=== PATIENT | male | born 1995 | race Caucasian/White ===

== ENCOUNTER 2017-04-29 12:15 | Emergency (ER) | payer BC ==
--- NOTE | 2017-04-29 12:28 | ED.PDOC ---
History of Present Illness - General Chief Complaint: Skin/Abrasion/Tear Stated Complaint: Skin irritation Time Seen by Provider: 04/29/17 12:22 Source: patient Exam Limitations: no limitations - History of Present Illness Initial Comments: Bud Brewer 21 y/o male stated that he squeezed out apimple like lesion on top of his nose last night after he was seen at er prescibed bactrim and mupirocin and this morning nose more red and swelled up. Timing/Duration: getting worse, other - 2 days ago Severity: moderate Location: face Improving Factors: nothing Worsening Factors: nothing Associated Symptoms: denies symptoms Allergies/Adverse Reactions: Allergies NO KNOWN ALLERGY Allergy (Verified 04/29/17 12:35) Home Medications: Ambulatory Orders Clindamycin HCl 300 mg PO BID #30 cap 04/29/17 Review of Systems - Review of Systems Constitutional: States: no symptoms reported EENTM: States: no symptoms reported Respiratory: States: no symptoms reported Cardiology: States: no symptoms reported Gastrointestinal/Abdominal: States: no symptoms reported Genitourinary: States: no symptoms reported Musculoskeletal: States: no symptoms reported Skin: States: see HPI Neurological: States: no symptoms reported Endocrine: States: no symptoms reported Hematologic/Lymphatic: States: no symptoms reported Physical Exam - Physical Exam General Appearance: Alert, No apparent distress Eyes, Ears, Nose, Throat Exam: PERRL/EOMI, normal ENT inspection, TMs normal Neck: non-tender, full range of motion, supple Cardiovascular/Chest: normal peripheral pulses, regular rate, rhythm, no murmur Respiratory: chest non-tender, lungs clear, normal breath sounds Gastrointestinal/Abdominal: normal bowel sounds, non tender, soft, no organomegaly Back Exam: normal inspection Extremity: normal range of motion, non-tender Neurologic: no motor/sensory deficits, alert, normal mood/affect, oriented x 3, abnormal gait Skin Exam: normal color Skin Problem Location: other - nose Skin Character: erythema, swelling, tenderness Lymphatic: no adenopathy Progress - Progress Progress: 04/29/17 13:15 04/29/17 12:49 Clindamycin IV 900Mg [Cleocin IV 900mg] 900 mg Premix Bag 1 bag IVPB ONCE Laboratory Results WBC 9.9 K/mm3 (4.8-10.8) 04/29/17 12:41 RBC 5.33 M/mm3 (4.70-6.10) 04/29/17 12:41 Hgb 15.2 gm/dL (14.0-18.0) 04/29/17 12:41 Hct 45.9 % (42.0-52.0) 04/29/17 12:41 MCV 86.2 fl (80.0-94.0) 04/29/17 12:41 MCH 28.5 pg (27.0-31.0) 04/29/17 12:41 MCHC 33.1 g/dL (33.0-37.0) 04/29/17 12:41 RDW 13.3 % (11.5-14.5) 04/29/17 12:41 Plt Count 221 K/mm3 (130-400) 04/29/17 12:41 MPV 8.8 fl (7.40-10.4) 04/29/17 12:41 Absolute Neuts (auto) 7.70 K/uL (1.8-6.8) H 04/29/17 12:41 Absolute Lymphs (auto) 1.20 K/uL (1.0-3.4) 04/29/17 12:41 Absolute Monos (auto) 0.80 K/uL (0.2-0.8) 04/29/17 12:41 Absolute Eos (auto) 0.20 K/uL (0.0-0.4) 04/29/17 12:41 Absolute Basos (auto) 0.10 K/uL (0.0-0.1) 04/29/17 12:41 Neutrophils % 77.5 % (42.0-78.0) 04/29/17 12:41 Lymphocytes % 12.4 % (20.0-50.0) L 04/29/17 12:41 Monocytes % 7.8 % (2.0-9.0) 04/29/17 12:41 Eosinophils % 1.8 % (1.0-5.0) 04/29/17 12:41 Basophils % 0.5 % (0.0-2.0) 04/29/17 12:41 Departure - Departure Clinical Impression: Cellulitis of nose, external Time of Disposition: 13:16 Disposition: Discharge to Home or Self Care Condition: Good Departure Forms: ED Discharge - Pt. Copy, Patient Portal Self Enrollment Instructions: DI for Cellulitis -- Adult, Cellulitis Prescriptions: Clindamycin HCl 300 mg PO BID #30 cap Home Medications: Ambulatory Orders Clindamycin HCl 300 mg PO BID #30 cap 04/29/17 Additional Instructions: RETURN TO Emergency room 04/30/2017 /for recheck; Continue with Bactrim ds as directed and mupirocin ointment
[2017-04-29] MEDS ORDERED: CLINDAMYCIN IV 900MG 900 MG in PREMIX BAG 1 BAG IVPB ONE (12:49)
[2017-04-29] MEDS ORDERED: CLINDAMYCIN IV 900MG 50 ML IVPB ONE (12:53)
[2017-04-29 14:08] VITALS: BP 122/83; TEMP 98.5; O2SAT 98
== END 2017-04-29 13:50 | disposition home or self-care (01) ==
LOC: ER 12:15
DX: J34.0 Abscess, furuncle and carbuncle of nose (principal)
CPT/HCPCS: 36415; 85025; J3490